=== PATIENT | male | born 1945 | race Caucasian/White ===

== ENCOUNTER 2017-03-19 14:31 | Inpatient (IN) | payer MEDICARE, SELFPAY ==
[~2017-03-19] VITALS: Ht 167.6 cm; Wt 129.0 kg
[~2017-03-19 14:31] MED LIST: ALDACTONE25 MG PO; BETAPACE120 MG PO; BISACODYL5 MG PO; BUMEX1 MG PO; CALCIUM 600 +1 EAC3 PO; CARAFATE1 GM PO; COUMADIN3 MG PO; COUMADIN4 MG PO; CRESTOR10 MG PO; CRESTOR20 MG PO; DEEP SEA44 ML; DOK100 MG PO; HYDROCODON-ACE1 EAC6 PO; ISOSORBIDE MON120 MG PO; K-DUR20 MEQ PO; KLONOPIN0.5 MG PO; LEVAQUIN750 MG PO; NITROGLYCERIN0.4 MG SL; NYSTATIN100000 UNI PO; ONDANSETRON HCL4 MG PO; PANTOPRAZOLE SO40 MG PO; POTASSIUM CHLO20 ME1 PO; PREDNISONE 10MG10 MG PO; RANEXA1000 MG PO; SYMBICORT 16060 PUFF INH; SYNTHROID25 MCG PO; TOPROL XL25 MG PO; TRICOR145 MG PO; WARFARIN SODIUM1 GM PO; XOPENEX0.63 MG/3 INH; ZAROXOLYN 2.5M2.5 MG PO
[2017-03-19 15:02] LABS: BASO % 0.1 % (0.2-1.2); GRAN # 7.8 10_X3_uL (1.8-5.4); GRAN % 83.1 % (34.0-67.9); LYMPH # 1.4 10_X3_uL (1.3-3.6); LYMPH % 14.3 % (21.8-53.1); MEAN CORPUSCULAR HEMOGLOBIN 29.9 pg (27.0-33.0); MEAN CORPUSCULAR HGB CONC 32.6 g/dL (32.0-36.0); MEAN CORPUSCULAR VOLUME 91.7 fL (79-92); MONO # 0.2 10_X3_uL (0.3-0.8); MONO % 2.5 % (5.3-12.2); PLATELET COUNT 233 x10_3/uL (163-337); RED BLOOD COUNT 4.69 x10_6/uL (4.6-6.1); RED CELL DISTRIBUTION WIDTH 14.4 % (11.6-14.4); WHITE BLOOD COUNT 9.4 x10_3/uL (4.2-9.1)
[2017-03-19 15:16] LABS: ALBUMIN 3.8 gm/dL (3.4-5.0); ALKALINE PHOSPHATASE 47 U/L (50-136); ALT/SGPT 10 U/L (7.53-40.17); AST/SGOT 19 U/L (6.66-35.34); BILIRUBIN,TOTAL 0.59 mg/dL (0.0-1.0); BLOOD UREA NITROGEN 18 mg/dL (7-18); CALCIUM 8.8 mg/dL (8.7-10.7); CARBON DIOXIDE 31 mmol/L (21-32); CREATINE KINASE 85 U/L (35-232); GLUCOSE,RANDOM 149 mg/dL (70-99); POTASSIUM 4.1 mmol/L (3.5-5.1); SODIUM 141 mmol/L (136-145); TOTAL PROTEIN 6.8 gm/dL (6.4-8.2)
[2017-03-19 15:26] LABS: PARTIAL THROMBOPLASTIN TIME 31.4 SECONDS (21.3-29.3); PROTHROMBIN TIME (PATIENT) 30.3 SECONDS (9.9-11.1)
[2017-03-20 06:54] LABS: INR 2.7 (0.9-1.1); PROTHROMBIN TIME (PATIENT) 28.1 SECONDS (9.9-11.1)
[2017-03-21 06:49] LABS: HEMATOCRIT 43.2 % (40-51); HEMOGLOBIN 13.9 g/dL (13.7-17.5); MEAN CORPUSCULAR HGB CONC 32.2 g/dL (32.0-36.0); MEAN CORPUSCULAR VOLUME 93.1 fL (79-92); MEAN PLATELET VOLUME 10.2 fl (7.5-11.5); RED BLOOD COUNT 4.64 x10_6/uL (4.6-6.1); RED CELL DISTRIBUTION WIDTH 14.6 % (11.6-14.4); WHITE BLOOD COUNT 7.9 x10_3/uL (4.2-9.1)
[2017-03-21 06:53] LABS: BLOOD UREA NITROGEN 20 mg/dL (7-18); CALCIUM 8.4 mg/dL (8.7-10.7); CARBON DIOXIDE 34 mmol/L (21-32); CREATININE 0.9 mg/dL (0.6-1.3); GLUCOSE,RANDOM 124 mg/dL (70-99); MAGNESIUM 2.3 mg/dL (1.8-2.4); POTASSIUM 4.3 mmol/L (3.5-5.1); SODIUM 141 mmol/L (136-145)
[2017-03-21 07:13] LABS: INR 3.6 (0.9-1.1); PROTHROMBIN TIME (PATIENT) 36.9 SECONDS (9.9-11.1)
[2017-03-22 06:12] LABS: HEMATOCRIT 41.6 % (40-51); HEMOGLOBIN 13.3 g/dL (13.7-17.5); MEAN CORPUSCULAR HEMOGLOBIN 29.8 pg (27.0-33.0); MEAN CORPUSCULAR VOLUME 93.3 fL (79-92); MEAN PLATELET VOLUME 9.9 fl (7.5-11.5); RED BLOOD COUNT 4.46 x10_6/uL (4.6-6.1); RED CELL DISTRIBUTION WIDTH 14.6 % (11.6-14.4); WHITE BLOOD COUNT 6.9 x10_3/uL (4.2-9.1)
[2017-03-22 06:24] LABS: PROTHROMBIN TIME (PATIENT) 30.9 SECONDS (9.9-11.1)
[2017-03-22 06:25] LABS: BLOOD UREA NITROGEN 18 mg/dL (7-18); CALCIUM 8.6 mg/dL (8.7-10.7); CARBON DIOXIDE 38 mmol/L (21-32); CREATININE 0.9 mg/dL (0.6-1.3); GLUCOSE,RANDOM 127 mg/dL (70-99); POTASSIUM 4.4 mmol/L (3.5-5.1); SODIUM 144 mmol/L (136-145)
[2017-03-22 06:29] LABS: CKMB 3.3 ng/ml (0.0-5.0); TROP-I < 0.30 NG/ML (0.00-0.30)
[2017-03-23 07:28] LABS: HEMOGLOBIN 13.3 g/dL (13.7-17.5); MEAN CORPUSCULAR HEMOGLOBIN 29.5 pg (27.0-33.0); MEAN CORPUSCULAR HGB CONC 31.7 g/dL (32.0-36.0); MEAN CORPUSCULAR VOLUME 93.1 fL (79-92); MEAN PLATELET VOLUME 10.5 fl (7.5-11.5); RED BLOOD COUNT 4.51 x10_6/uL (4.6-6.1); RED CELL DISTRIBUTION WIDTH 14.4 % (11.6-14.4); WHITE BLOOD COUNT 6.3 x10_3/uL (4.2-9.1)
[2017-03-23 07:38] LABS: INR 2.4 (0.9-1.1); PROTHROMBIN TIME (PATIENT) 25.1 SECONDS (9.9-11.1)
[2017-03-23 07:44] LABS: ALBUMIN 3.5 gm/dL (3.4-5.0); ALKALINE PHOSPHATASE 40 U/L (50-136); ALT/SGPT 9 U/L (7.53-40.17); AST/SGOT 18 U/L (6.66-35.34); BILIRUBIN,TOTAL 0.47 mg/dL (0.0-1.0); BLOOD UREA NITROGEN 17 mg/dL (7-18); CALCIUM 8.6 mg/dL (8.7-10.7); CARBON DIOXIDE 36 mmol/L (21-32); CREATININE 0.9 mg/dL (0.6-1.3); GLUCOSE,RANDOM 133 mg/dL (70-99); POTASSIUM 4.2 mmol/L (3.5-5.1); SODIUM 142 mmol/L (136-145); TOTAL PROTEIN 6.2 gm/dL (6.4-8.2)
[2017-03-23 12:00] LABS: URINE BILIRUBIN NEGATIVE (NEGATIVE); URINE BLOOD 3+ (NEGATIVE); URINE GLUCOSE (UA) NORMAL (NORMAL); URINE KETONE NEGATIVE (NEGATIVE); URINE LEUKOCYTE ESTERASE TRACE (NEGATIVE); URINE NITRATE NEGATIVE (NEGATIVE); URINE PROTEIN TRACE (NEGATIVE); UROBILINOGEN NORMAL mg/dL (<1.0)
[2017-03-23 12:27] LABS: URINE RBC >20 /[HPF] (0-2); URINE SQUAMOUS EPITHELIAL CELL 0-10 /[HPF] (NONE SEEN); URINE WBC 0-5 /[HPF] (0-3)
[2017-03-23 12:28] LABS: URINE BACTERIA 2+ (NONE SEEN); URINE HYALINE CAST 0-2 /[HPF] (0-1/hpf)
== END 2017-03-23 12:20 | disposition home or self-care (01) | DRG 195 ==
LOC: ER 14:31 → MS 16:23 → UNDODEPER 03-20 17:13 → MS 03-20 18:18
PROVIDERS: Internal Medicine; ADMIT Family Medicine
DX: J18.9 Pneumonia, unspecified organism (principal); I48.91 Unspecified atrial fibrillation; F41.9 Anxiety disorder, unspecified; J60 Coalworker's pneumoconiosis; M54.9 Dorsalgia, unspecified; G89.29 Other chronic pain; I10 Essential (primary) hypertension; E11.9 Type 2 diabetes mellitus without complications; I50.9 Heart failure, unspecified; J44.9 Chronic obstructive pulmonary disease, unspecified; Z82.49 Family history of ischemic heart disease and other diseases of the circulatory system; R51 Headache; R07.9 Chest pain, unspecified; Z79.01 Long term (current) use of anticoagulants; Z88.5 Allergy status to narcotic agent; Z79.899 Other long term (current) drug therapy
CPT/HCPCS: 36415; 70450; 71010; 80048; 80053; 80061; 81001; 82550; 82553; 82962; 83036; 83605; 83735; 85025; 85610; 85730; 86738; 87040; 87070; 87086; 87205; 87449; 93005; 93041; 94640; 96365; 99070; 99284; 99285-25; J7050

== ENCOUNTER 2017-03-19 14:31 | Emergency (ER) | payer MEDICARE, SELFPAY | END 2017-03-19 16:23 | disposition other institution (70) | LOC: ER 14:31 | DX: J18.9 Pneumonia, unspecified organism (principal); I48.91 Unspecified atrial fibrillation; I10 Essential (primary) hypertension; R06.02 Shortness of breath; R51 Headache; R07.89 Other chest pain; Z79.01 Long term (current) use of anticoagulants; Z88.5 Allergy status to narcotic agent | CPT/HCPCS: 99284; 99285-25 ==